=== PATIENT | male | born 1995 | race Caucasian/White ===

== ENCOUNTER 2017-02-02 20:19 | Emergency (ER) | payer OTHER ==
[~2017-02-02] VITALS: Ht 180.3 cm; Wt 100.6 kg
[~2017-02-02 20:19] MED LIST: DEBROX15 ML BOTH EARS; FLONASE16 G1 BOTH NARES; HUMALOG100 UNIT/2 SC; HUMULOG; LANTUS; LANTUS 10100 UNITS/ SC; MUCUS RELIEF600 M1 PO; NOHOMEMEDS; ZYRTEC10 M2 PO
[2017-02-02 20:43] LABS: HEMATOCRIT 38.8 % (38.0-50.0); MCH 27.8 PG (29.0-34.0); MCHC 34.8 G/DL (30.0-36.0); MEAN PLAT.VOLUME 11.5 uM^3 (9.0-12.4); PLATELET COUNT 214 K/uL (156-360); RBC DIS.WIDTH-CV 12.3 % (11.8-14.6); RBC DIS.WIDTH-SD 35.7 % (39-53); RED BLOOD COUNT 4.85 M/uL (4.00-5.50); WHITE BLOOD COUNT 6.3 K/uL (4.1-10.2)
[2017-02-02 20:51] LABS: CHLORIDE 103 mEq/L (99-109); POTASSIUM 3.6 mEq/L (3.7-5.4); SODIUM 136 mEq/L (136-147)
[2017-02-02 20:53] LABS: GLUCOSE 243 mg/dL (70-99)
[2017-02-02 20:54] LABS: ANION GAP 11 MEQ/L (2-14)
[2017-02-02 20:57] LABS: GFR ESTIMATE (CALCULATED) > 59 mL/min/; UREA NITROGEN (BUN) 14 mg/dL (9-23)
[2017-02-02 21:05] LABS: TROP-I INTERPRETATION NEGATIVE; TROPONIN-I < 0.01 ng/mL (0.0-0.30)
[2017-02-02 23:28] LABS: TROP-I INTERPRETATION NEGATIVE; TROPONIN-I < 0.01 ng/mL (0.0-0.30)
[2017-02-02] MEDS ORDERED: ZANTAC150 MG PO (23:46)
[2017-02-03 00:21] VITALS: BP 134/86
== END 2017-02-03 00:25 | disposition home or self-care (01) ==
LOC: EME 20:19
PROVIDERS: Emergency Medicine
DX: R07.89 Other chest pain (principal); K29.00 Acute gastritis without bleeding; M25.512 Pain in left shoulder; E11.9 Type 2 diabetes mellitus without complications; Z79.4 Long term (current) use of insulin
CPT/HCPCS: 71020; 80048; 84484; 85027; 93005; 99281; 99285

== ENCOUNTER 2017-02-03 23:30 | Emergency (ER) | payer OTHER ==
[~2017-02-03] VITALS: Ht 180.3 cm; Wt 99.5 kg
[~2017-02-03 23:30] MED LIST changes: +ZANTAC150 MG PO
[2017-02-04 01:37] LABS: HEMATOCRIT 39.1 % (38.0-50.0); MCH 27.6 PG (29.0-34.0); MCHC 34.3 G/DL (30.0-36.0); MCV 80.6 FL (86-99); MEAN PLAT.VOLUME 11.6 uM^3 (9.0-12.4); PLATELET COUNT 233 K/uL (156-360); RBC DIS.WIDTH-CV 12.5 % (11.8-14.6); RED BLOOD COUNT 4.85 M/uL (4.00-5.50); WHITE BLOOD COUNT 7.4 K/uL (4.1-10.2)
[2017-02-04 01:56] LABS: CHLORIDE 107 mEq/L (99-109); POTASSIUM 3.7 mEq/L (3.7-5.4); SODIUM 140 mEq/L (136-147)
[2017-02-04 01:57] LABS: GLUCOSE 138 mg/dL (70-99)
[2017-02-04 01:59] LABS: ANION GAP 11 MEQ/L (2-14)
[2017-02-04 02:01] LABS: GFR ESTIMATE (CALCULATED) > 59 mL/min/
[2017-02-04 02:02] LABS: UREA NITROGEN (BUN) 15 mg/dL (9-23)
[2017-02-04 02:03] LABS: TROP-I INTERPRETATION NEGATIVE; TROPONIN-I < 0.01 ng/mL (0.0-0.30)
[2017-02-04 02:27] VITALS: BP 132/62
== END 2017-02-04 02:28 | disposition home or self-care (01) ==
LOC: EME 23:30
PROVIDERS: Emergency Medicine; Nurse Practitioner Family
DX: R20.2 Paresthesia of skin (principal); E11.9 Type 2 diabetes mellitus without complications; Z79.4 Long term (current) use of insulin
CPT/HCPCS: 70450; 80048; 84484; 85027; 93005; 99281; 99283

== ENCOUNTER 2017-02-18 14:54 | Emergency (ER) | payer OTHER ==
[~2017-02-18] VITALS: Ht 180.3 cm; Wt 99.3 kg
[2017-02-18 15:10] VITALS: BP 143/79
== END 2017-02-18 17:56 | disposition left against medical advice (07) ==
LOC: EME 14:54
DX: R20.0 Anesthesia of skin (principal); E11.9 Type 2 diabetes mellitus without complications; Z79.4 Long term (current) use of insulin; Z53.21 Procedure and treatment not carried out due to patient leaving prior to being seen by health care provider
CPT/HCPCS: 80048; 85027

== ENCOUNTER 2017-12-22 18:24 | Emergency (ER) | payer OTHER ==
[~2017-12-22] VITALS: Ht 177.8 cm; Wt 107.1 kg
[2017-12-22 19:14] LABS: HEMATOCRIT 42.4 % (38.0-50.0); HEMOGLOBIN 14.9 G/DL (12.5-16.6); MCH 28.2 PG (29.0-34.0); MCHC 35.1 G/DL (30.0-36.0); MCV 80.3 FL (86-99); RBC DIS.WIDTH-CV 12.1 % (11.8-14.6); RBC DIS.WIDTH-SD 35.1 % (39-53); RED BLOOD COUNT 5.28 M/uL (4.00-5.50); WHITE BLOOD COUNT 8.6 K/uL (4.1-10.2)
[2017-12-22 19:27] LABS: CHLORIDE 103 mEq/L (99-109); SODIUM 138 mEq/L (136-147)
[2017-12-22 19:29] LABS: GLUCOSE 243 mg/dL (70-99)
[2017-12-22 19:33] LABS: CREATININE 1.1 mg/dL (0.6-1.3); GFR ESTIMATE (CALCULATED) > 59 mL/min/ (58.99-99999)
[2017-12-22 19:34] LABS: UREA NITROGEN (BUN) 13 mg/dL (9-23)
[2017-12-22 19:41] LABS: TROP-I INTERPRETATION NEGATIVE; TROPONIN-I < 0.01 ng/mL (0.0-0.30)
[2017-12-22 20:14] LABS: PLAT.SUFFICIENCY ADEQUATE
[2017-12-22 20:15] LABS: PLATELET COUNT 239 K/uL (156-360)
[2017-12-22 21:22] LABS: MAGNESIUM 2.2 mg/dL (1.3-2.7)
[2017-12-22 22:21] LABS: TROP-I INTERPRETATION NEGATIVE; TROPONIN-I < 0.01 ng/mL (0.0-0.30)
[2017-12-22] MEDS ORDERED: VISTARIL50 MG PO (22:38)
[2017-12-22 22:59] VITALS: BP 129/75
== END 2017-12-22 23:00 | disposition home or self-care (01) ==
LOC: EME 18:24
PROVIDERS: Physician Assistant
DX: R07.89 Other chest pain (principal); F43.0 Acute stress reaction; F41.9 Anxiety disorder, unspecified; E11.65 Type 2 diabetes mellitus with hyperglycemia; Z79.4 Long term (current) use of insulin
CPT/HCPCS: 71046; 80048; 83735; 84484; 85027; 93005; 99281; 99285